=== PATIENT | female | born 1955 | race Caucasian/White ===

== ENCOUNTER 2024-08-04 12:39 | Outpatient (OUT) | payer MEDICARE, OTHER, SELFPAY ==
--- NOTE | 2024-08-04 13:00 | CA_ITS ---
Patient Name: TIARA SLAUGHTER MR#: [id number] : 1955 Exam Date: 08/04/2024 Ordering Doctor: DR MARGARITA WAGNER . ECHOCARDIOGRAM REPORT PROCEDURE: CA ECHO DOPPLER COMPLETE INDICATIONS: Palpitations, biatrial enlargement COMPARISON: None. DESCRIPTION: COMPLETE ECHOCARDIOGRAM Real-time transthoracic echocardiography with 2D, M-mode, spectral and color flow Doppler performed. QUALITY: Technical quality was good. LEFT VENTRICLE: Normal chamber size. Normal left ventricular wall thickness. LV EF: Global left ventricular systolic function is normal; visually estimated ejection fraction is 55%. No significant wall motion abnormalities. DIASTOLIC: Diastolic function is indeterminate. ATRIAL SEPTUM: Visually appears intact. LEFT ATRIUM: Normal chamber size. RIGHT ATRIUM: Normal chamber size. RIGHT VENTRICLE: Normal chamber size. Normal right ventricular systolic function. TRICUSPID VALVE: Normal mobility and thickness. Moderate regurgitation. Doppler studies reveal mildly (35-45) elevated right sided pressures. RVSP 37 mmHg MITRAL VALVE: Normal mobility and thickness. No evidence of mitral valve stenosis. There is no mitral annular calcification. Trivial mitral regurgitation. AORTIC VALVE: Normal trileaflet appearance. No visible sclerosis. Normal leaflet mobility. No evidence of aortic valve stenosis. No aortic regurgitation. AORTIC ROOT: Normal diameter and appearance. Ascending aorta is normal in size. PULMONIC VALVE: Normal thickness and mobility. No stenosis. Trivial regurgitation. PERICARDIUM: No evidence of pericardial effusion. IVC: Within normal limits. CONCLUSION: 1. Global left ventricular systolic function is normal; visually estimated ejection fraction is 55% 2. Normal right ventricular size and systolic function 3. Diastolic function is indeterminate 4. The left atrium is normal in size 5. Moderate tricuspid regurgitation 6. Mildly elevated right ventricular systolic pressure; RVSP 37 mmHg Adult Echocardiography Procedure Report Left Ventricle LVEDD (3.7 - 5.6 cm): 3.46 cm LVESD (2.2 - 4.0 cm): 1.69 cm LVIVS thickness (0.6 - 1.2 cm): 0.85 cm LVPW thickness (0.5 - 1.0 cm): 0.67 cm e': 0.09 m/s E - e': 6.22 LVOT Max Gradient: 1.75 mm[Hg] LVOT Area (cm2): 0.66 m/s Peak Velocity (LVOT): 0.66 m/s LVOT Diameter 2.02 cm Left Atrium LA Volume Index (2D A2C): 23.04 ml/m2 Left Atrium Systolic Dimension: 2.20 cm Mitral Valve MV E to A Ratio: 0.86 Mitral Valve A-Wave Peak Velocity: 0.65 m/s Mitral Valve E-Wave Peak Velocity: 0.56 m/s Right Ventricle Aorta AO Root Diam: 2.66 cm Ascending Ao Diam: 2.66 cm Aortic Valve AoV Area (Peak Florentino): 2.36 cm2, 2.36 cm2 Peak Velocity(Antegrade Flow): 0.89 m/s Peak Gradient(Antegrade Flow): 3.20 mm[Hg] Tricuspid Valve Peak Velocity (Regurgitant Flow): 2.91 m/s Pulmonic Valve Mean Gradient: 1.10 mm[Hg] Mean Velocity: 0.49 m/s Peak Velocity: 0.73 m/s, 0.61 m/s Peak Gradient: 1.47 mm[Hg], 2.11 mm[Hg] Right Atrium Right Atrium Systolic Pressure: 23.33 ml, 23.33 ml Dictated by: Gonsalo Carballo M.D. on 08/04/2024 at 14:55 Approved by: Gonsalo Carballo M.D. on 08/04/2024 at 14:58
== END 2024-08-04 12:40 | disposition home or self-care (01) ==
LOC: CARD 12:43
PROVIDERS: PCP Family Medicine; Visit Provider Family Medicine
DX: R00.2 Palpitations (principal); I51.7 Cardiomegaly; I34.0 Nonrheumatic mitral (valve) insufficiency
CPT/HCPCS: 93306